=== PATIENT | male | born 1955 | race Caucasian/White ===

== ENCOUNTER 2020-03-16 16:43 | Observation (INO) ==
[2020-03-16 16:50] VITALS: BMI 25.8
--- NOTE | 2020-03-16 18:14 | DR.EXTPAIN ---
HPI Time seen Time Seen by Provider: 03/16/20 18:14 PCP Primary Care Physician: ANDREW HPI Comment HPI Comment: 64 yo m w/ prev hx of chf presents w/ wound left foot x 2 weeks. Stepped on nail that penetrated boots. Complains of progressive pain/ swelling in area of puncture along w/ development of overlying blisters. No f/c. No prev hx of diabetes. No cough, n/v/d, abd pain, CP or sob. Complaint/Symptoms Chief Complaint:: PT. STATES HE STEPPED ON A NAIL 2 WEEKS AGO ON LEFT FOOT. PT. C/O PAIN AND SWELLING TO LEFT FOOT. COVID-19 Coronavirus risk:travel/contact w/high risk person: No Has patient experienced Coronavirus symptoms: No Source History Provided: Patient Mode of arrival Mode of Arrival: Ambulatory Timing Onset of Chief Complaint: 03/02/20 PMH PMH Past Medical History: Yes Past Medical History: CHF, COPD and Coronary Artery Disease Past Medical History Comment: PACEMAKER/DEFIBILLATOR Past Surgical History: Yes Surgical History: Angioplasty/Stents, CABG/Valve Surgery and Cholecystectomy Family History History of Family Medical Conditions: No Social History Does patient currently use any type of tobacco product: Yes Have you used tobacco products in the last 12 months: Yes Type of Tobacco Use: Cigarettes Does any household member use tobacco: No Alcohol Use: Occasionally Do you use any recreational Drugs:: Yes (MARIJUANA) Lives With: Alone Lives Where: Home Travel Risk Coronavirus risk:travel/contact w/high risk person: No Has patient experienced Coronavirus symptoms: No Infectious screening In the last 2 months have you had wt loss of >10#?: NO Have you had fever, night sweats or hemotysis?: No Have you traveled outside the country in the last 6 months?: No Isolation: Standard ROS Review of Systems Constitutional: No Symptoms Reported Eyes: No Symptoms Reported ENTM: No Symptoms Reported Respiratoy: No Symptoms Reported Cardiovascular: No Symptoms Reported Gastrointestinal/Abdominal: No Symptoms Reported Genitourinary: No Symptoms Reported Neurological: No Symptoms Reported Musculoskeletal: Other (wound, left foot pain ) Integumentary: No Symptoms Reported Hematologic/Lymphatic: No Symptoms Reported Endocrine: No Symptoms Reported Psychiatric: No Symptoms Reported All Other Systems: Reviewed and Negative PE Vital Signs Vitals: Temperature 97.2 F Pulse Rate 75 Respiratory Rate 18 Blood Pressure 143/77 O2 Sat by Pulse Oximetry 93 General Limitations: No Limitations General Appearance: Alert and In No Apparent Distress Head Head Exam: Normal Inspection Eyes Eye exam: Normal Appearance ENT ENT Exam: Normal Exam Neck Neck Exam: Normal Inspection Chest Chest Inspection: Normal Inspection Respiratory Respiratory Exam: Normal Lung Sounds Bilat Cardiovascular Cardiovascular Exam: Regular Rate and Normal Rhythm Abdominal Exam Abdominal Exam: Normal Inspection, Normal Bowel Sounds and Soft Extremities Extremities Exam: Normal Inspection Back Back Exam: Normal Inspection Neurological Neurological Exam: Alert, Oriented X3 and CN II-XII Intact Psychiatric Psychiatric Exam: Normal Affect and Normal Mood Skin Skin Exam: Warm, Dry, Intact and Normal Color Other Exam Other Exam: left foot: 1 cm area of multiple vessivles solar surface left foot with surrounding area of errythema, diffuse soft tissue swelling, no crepitus, no proximal streaking, distal nv intact. good cap refill in left foot digits, sensation intact. MDM Differential Diagnosis Differential Diagnosis: Other (cellulitis, abscess, osteomyelitis, compartment syndrom, necrotizing fascitis ) COURSE Treatment Treatment: 64 yo m w/ prev hx of ckd stage 3 and chf/ pacemaker presents with wound left foot after stepping on a nail 2 weeks ago. Evidence of cellulitis on exam. No leukocytosis. Afebrile. Cre 1/6, unclear baseline h/e has hx of ckd s tage 3. Foot film w/ ? radiopaque fb retained however small. Given vanc/ Zosyn. 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 ROR Labs Reviewed Laboratory Results Reviewed?: Yes Result Diagrams: 03/16/20 18:25 03/16/20 18:25 Laboratory: WBC 6.6 X10^3/uL (3.6-10.0) 03/16/20 18:25 RBC 4.82 X10^6/uL (4.7-6.0) 03/16/20 18:25 Hgb 14.4 g/dL (13.5-18.0) 03/16/20 18:25 Hct 42.5 % (42.0-54.0) 03/16/20 18:25 MCV 88.1 fL (80.0-100.0) 03/16/20 18:25 MCH 29.8 pg (27.0-34.0) 03/16/20 18:25 MCHC 33.9 g/dL (33.0-35.0) 03/16/20 18:25 RDW 13.2 % (11.6-16.5) 03/16/20 18:25 Plt Count 212 X10^3/uL (150.0-450.0) 03/16/20 18:25 MPV 7.9 fL (7.4-11.0) 03/16/20 18:25 Neut % (Auto) 62.6 % (42.0-75.0) 03/16/20 18:25 Lymph % (Auto) 20.2 % (21.0-51.0) L 03/16/20 18:25 [place] % (Auto) 10.1 % (0.0-13.0) 03/16/20 18:25 Eos % (Auto) 6.0 % (0.9-2.9) H 03/16/20 18:25 Baso % (Auto) 1.1 % (0.2-1.0) H 03/16/20 18:25 Neut # (Auto) 4.1 x10^3/uL (2.2-4.8) 03/16/20 18:25 Lymph # (Auto) 1.3 X10^3/uL (1.3-2.9) 03/16/20 18:25 [place] # (Auto) 0.7 x10^3/uL (0.3-0.8) 03/16/20 18:25 Eos # (Auto) 0.4 x10^3/uL (0.0-0.2) H 03/16/20 18:25 Baso # (Auto) 0.1 X10^3/uL (0.0-0.1) 03/16/20 18:25 Absolute Nucleated RBC 0.0 /100WBC 03/16/20 18:25 Sodium 142 mmol/L (136-145) 03/16/20 18:25 Corrected Sodium TNP 03/16/20 18:25 Potassium 5.0 mmol/L (3.5-5.1) 03/16/20 18:25 Chloride 106 mmol/L (98-107) 03/16/20 18:25 Carbon Dioxide 30.4 mmol/L (21-32) 03/16/20 18:25 BUN 18 mg/dL (7-18) 03/16/20 18:25 Creatinine 1.62 mg/dL (0.70-1.30) H 03/16/20 18:25 Est GFR (MDRD) Af Amer 56 (>60) L 03/16/20 18:25 Est GFR (MDRD) Non-Af 46 (>60) L 03/16/20 18:25 Glucose 87 mg/dL (65-99) 03/16/20 18:25 Calcium 9.3 mg/dL (8.5-10.1) 03/16/20 18:25 Opioid Opioid Risk Tool Age (Saul box if 16-45): No History of Preadolescent Sexual Abuse: No Total: 0 Total Score Risk Category: Low Risk Copyright: [employer] ENCINAS predicting aberrant behaviors Diagnosis Discharge Problem: Cellulitis and abscess of left lower extremity, CKD stage G3a/A1, GFR 45-59 and albumin creatinine ratio <30 mg/g CHF (congestive heart failure) Qualifiers: Heart failure type: systolic Heart failure chronicity: chronic Qualified Code(s): I50.22 - Chronic systolic (congestive) heart failure Instructions Forms: Excuse From Work Patient Portal Social Distancing
[2020-03-16] MEDS ORDERED: MORPHINE SULFATE INJ 4 MG IVP ONE (18:15)
[2020-03-16] MEDS ORDERED: MORPHINE SULFATE INJ 2 MG INJ ONE (18:25)
[2020-03-16] MEDS ORDERED: ZOFRAN INJ 4 MG VIAL ONE (18:30)
[2020-03-16] MEDS ORDERED: ZOFRAN INJ 4 MG VIAL IVP ONE (18:33)
[2020-03-16 18:34] LABS: BASOPHILS # (AUTO) 0.1 X10^3/uL (0.0-0.1); BASOPHILS % (AUTO) 1.1 % (0.2-1.0); EOSINOPHILS # (AUTO) 0.4 x10^3/uL (0.0-0.2); HEMATOCRIT 42.5 % (42.0-54.0); HEMOGLOBIN 14.4 g/dL (13.5-18.0); LYMPHOCYTES # (AUTO) 1.3 X10^3/uL (1.3-2.9); LYMPHOCYTES % (AUTO) 20.2 % (21.0-51.0); MEAN CORPUSCULAR HEMOGLOBIN 29.8 pg (27.0-34.0); MEAN CORPUSCULAR HGB CONC 33.9 g/dL (33.0-35.0); MEAN CORPUSCULAR VOLUME 88.1 fL (80.0-100.0); MEAN PLATELET VOLUME 7.9 fL (7.4-11.0); MONOCYTES # (AUTO) 0.7 x10^3/uL (0.3-0.8); MONOCYTES % (AUTO) 10.1 % (0.0-13.0); NEUTROPHILS # (AUTO) 4.1 x10^3/uL (2.2-4.8); NEUTROPHILS % (AUTO) 62.6 % (42.0-75.0); PLATELET COUNT 212 X10^3/uL (150.0-450.0); RED BLOOD COUNT 4.82 X10^6/uL (4.7-6.0); RED CELL DISTRIBUTION WIDTH 13.2 % (11.6-16.5); WHITE BLOOD COUNT 6.6 X10^3/uL (3.6-10.0)
[2020-03-16 18:41] LABS: BLOOD UREA NITROGEN 18 mg/dL (7-18); CALCIUM 9.3 mg/dL (8.5-10.1); CARBON DIOXIDE 30.4 mmol/L (21-32); CHLORIDE 106 mmol/L (98-107); CREATININE 1.62 mg/dL (0.70-1.30); SODIUM 142 mmol/L (136-145); eGFR NON BLACK RACES 46 (>60)
[2020-03-16] MEDS ORDERED: ZOSYN VIAL 3.375 GRAMS 3.375 G in NS 100 ML IV + SPIKE MINIBAG* 100 ML IV ONE (18:53)
[2020-03-16] MEDS ORDERED: D5W IV ONE (18:53)
[2020-03-16] MEDS ORDERED: VANCOMYCIN HCL IV ONE (18:53)
[2020-03-16] MEDS ORDERED: ZOSYN VIAL 3.375 GRAMS IV ONE (19:00)
[2020-03-16] MEDS ORDERED: NS 100 ML IV + SPIKE MINIBAG* 100 ML IV ONE (19:00)
[2020-03-16] MEDS ORDERED: NS 250 ML IV 250 ML IV ONE (19:07)
[2020-03-16] MEDS ORDERED: VANCOMYCIN HCL ONE (19:07)
--- NOTE | 2020-03-16 19:25 | RAD ---
HISTORYPT. STATES HE STEPPED ON A NAIL 2 WEEKS AGO ON LEFT FOOT. PT. C/O PAIN AND SWELLING TO LEFT FOOT. CHF, COPD, CAD, ANGIOPLASTY/STENTS, CABG/VALVE, CHOLECYSTECTOMYSTUDYFOOT, LEFTCOMPARISONNoneFINDINGSNo acute cortical disruption or dislocation can be identified. There is some soft tissue swelling on the plantar aspect of the forefoot. There is a tiny 2 mm radiopaque density just beneath the skin surface joints on the lateral view which could be due to retained metallic fragment.. The visualized portions of the talus and calcaneus are unremarkable.IMPRESSIONSoft tissue swelling with a tiny 2 mm radiopaque fragment just at the skin surface as above. No acute bony findings are seen.Electronically signed by: ROXANE DE LOS SANTOS (March 16, 2020 19:23:37)
[2020-03-16] MEDS ORDERED: ADACEL or BOOSTRIX TDaP VACCINE IM ONE ×2 (19:32→19:37)
[2020-03-16] MEDS ORDERED: NORCO 5/325 MG TAB PO PRN (19:40)
[2020-03-16] MEDS ORDERED: ZOFRAN TAB 4 MG PO PRN (19:40)
[2020-03-16] MEDS ORDERED: PHARMACY CONSULT - VANCOMYCIN XX SCH (20:00)
[2020-03-16] MEDS: NICOTINE PATCH TD SCH (21:30)
[2020-03-16] MEDS: PROVENTIL NEB TX 0.083% 2.5MG/ 3ML NEB PRN (22:15)
[2020-03-17] MEDS ORDERED: MAALOX or MYLANTA ONE (03:50)
[2020-03-17] MEDS: MAALOX or MYLANTA PO PRN ×3 (04:06→20:39)
[2020-03-17] MEDS ORDERED: NS 250 ML IV 250 ML IV ONE (04:53)
[2020-03-17] MEDS: ZOSYN VIAL 2.25 GRAMS 2.25 G in NS 100 ML IV + SPIKE MINIBAG* 100 ML IV SCH ×3 (05:18→22:00)
[2020-03-17] MEDS: NICOTINE PATCH TD SCH (08:14)
[2020-03-17] MEDS: PROVENTIL NEB TX 0.083% 2.5MG/ 3ML NEB PRN ×2 (08:26→21:34)
[2020-03-17 10:03] LABS: BASOPHILS % (AUTO) 0.7 % (0.2-1.0); EOSINOPHILS # (AUTO) 0.3 x10^3/uL (0.0-0.2); HEMATOCRIT 38.9 % (42.0-54.0); LYMPHOCYTES # (AUTO) 0.9 X10^3/uL (1.3-2.9); MEAN CORPUSCULAR HEMOGLOBIN 29.6 pg (27.0-34.0); MEAN CORPUSCULAR HGB CONC 33.4 g/dL (33.0-35.0); MEAN CORPUSCULAR VOLUME 88.5 fL (80.0-100.0); MEAN PLATELET VOLUME 8.1 fL (7.4-11.0); MONOCYTES # (AUTO) 0.6 x10^3/uL (0.3-0.8); MONOCYTES % (AUTO) 9.4 % (0.0-13.0); NEUTROPHILS # (AUTO) 4.7 x10^3/uL (2.2-4.8); NEUTROPHILS % (AUTO) 71.9 % (42.0-75.0); PLATELET COUNT 183 X10^3/uL (150.0-450.0); RED BLOOD COUNT 4.39 X10^6/uL (4.7-6.0); RED CELL DISTRIBUTION WIDTH 13.3 % (11.6-16.5); WHITE BLOOD COUNT 6.5 X10^3/uL (3.6-10.0)
[2020-03-17 10:09] LABS: CALCIUM 8.2 mg/dL (8.5-10.1); CARBON DIOXIDE 29.3 mmol/L (21-32); CREATININE 1.65 mg/dL (0.70-1.30)
[2020-03-17] MEDS: COREG TAB 12.5 MG PO SCH ×2 (11:05→20:38)
[2020-03-17] MEDS: ZETIA TAB 10 MG PO SCH (11:05)
[2020-03-17] MEDS: CRESTOR TAB 10 MG PO SCH (11:05)
[2020-03-17] MEDS: VANCOMYCIN IV *PREMIX 1 G/200 ML BAG 1 G/200 ML PIGGYBACK IV SCH ×2 (11:06→20:38)
[2020-03-17] MEDS: PLAVIX PO SCH (11:06)
[2020-03-17] MEDS ORDERED: NORCO 5/325 MG TAB PO PRN (11:36)
--- NOTE | 2020-03-17 11:46 | DR.H&P ---
H&P History & Physical for Day of: H&P Date: 03/17/20 Chief Complaint Chief Complaint: left foot pain Allergies Allergies Allergy/AdvReac Type Severity Reaction Status Date / Time No Known Drug Allergies Allergy Verified 03/16/20 16:50 History of Present Illness History of Present Illness: Mr. Flaherty is a 64y/o male with a PMH of CABG, pacemaker, HTN, CHF presented with left foot injury that happened 2 weeks ago. He stepped on nail and it went through his shoe and punctured the bottom of his foot. He noticed some redness around the area and was taking some Augmentin. The redness and pain continued to worsen and he also noted a small collection of pus. He states he tried to drain it himself but nothing came out. ED work-up Foot XR: soft tissue swelling, 2mm radiopaque metallic fragment noted Labs: Cr 1.62, K:5 He was started on Vanc/Zosyn, received Tdap Plan: will continue antibiotics, repeat labs, start gentle hydration, monitor AM labs. Hold entresto due to AVELINA, Consult Dr. Acevedo Past Medical History Past Medical History: CHF, COPD and Coronary Artery Disease Additional Medical History: CABG Past Surgical History Surgical History: Angioplasty/Stents, CABG/Valve Surgery, Cholecystectomy and Other Family History Family Medical History: Diabetes Mellitus, [place] and Sudden Cardiac Social History Does patient currently use any type of tobacco product: Yes Have you used tobacco products in the last 12 months: Yes Type of Tobacco Use: Cigarettes How many years tobacco product used: 50 Does any household member use tobacco: No Alcohol Use: Occasionally Drug Use: Marijuana Medications Home Medications: No Known Drug Allergies Allergy (Verified 03/16/20 16:50) CONTINUE taking the following medications carvedilol 12.5 mg PO BID 03/16/20 [History] clopidogrel 75 mg PO DAILY 03/16/20 [History] ezetimibe 10 mg PO DAILY 03/16/20 [History] rvgnqosktoq-pnawpihyf-yjlinaed [Trelegy Ellipta] 1 inh INHALATION DAILY 03/16/20 [History] rosuvastatin 40 mg PO DAILY 03/16/20 [History] sacubitril-valsartan [Entresto] 1 tab PO BID 03/16/20 [History] Labs Result Diagrams: 03/17/20 09:35 03/17/20 09:35 Labs: Laboratory WBC 6.5 X10^3/uL (3.6-10.0) 03/17/20 09:35 RBC 4.39 X10^6/uL (4.7-6.0) L 03/17/20 09:35 Hgb 13.0 g/dL (13.5-18.0) L 03/17/20 09:35 Hct 38.9 % (42.0-54.0) L 03/17/20 09:35 MCV 88.5 fL (80.0-100.0) 03/17/20 09:35 MCH 29.6 pg (27.0-34.0) 03/17/20 09:35 MCHC 33.4 g/dL (33.0-35.0) 03/17/20 09:35 RDW 13.3 % (11.6-16.5) 03/17/20 09:35 Plt Count 183 X10^3/uL (150.0-450.0) 03/17/20 09:35 MPV 8.1 fL (7.4-11.0) 03/17/20 09:35 Neut % (Auto) 71.9 % (42.0-75.0) 03/17/20 09:35 Lymph % (Auto) 14.0 % (21.0-51.0) L 03/17/20 09:35 [place] % (Auto) 9.4 % (0.0-13.0) 03/17/20 09:35 Eos % (Auto) 4.0 % (0.9-2.9) H 03/17/20 09:35 Baso % (Auto) 0.7 % (0.2-1.0) 03/17/20 09:35 Neut # (Auto) 4.7 x10^3/uL (2.2-4.8) 03/17/20 09:35 Lymph # (Auto) 0.9 X10^3/uL (1.3-2.9) L 03/17/20 09:35 [place] # (Auto) 0.6 x10^3/uL (0.3-0.8) 03/17/20 09:35 Eos # (Auto) 0.3 x10^3/uL (0.0-0.2) H 03/17/20 09:35 Baso # (Auto) 0.0 X10^3/uL (0.0-0.1) 03/17/20 09:35 Absolute Nucleated RBC 0.0 /100WBC 03/17/20 09:35 Sodium 140 mmol/L (136-145) 03/17/20 09:35 Corrected Sodium 140 mmol/L (136-145) 03/17/20 09:35 Potassium 4.7 mmol/L (3.5-5.1) 03/17/20 09:35 Chloride 107 mmol/L (98-107) 03/17/20 09:35 Carbon Dioxide 29.3 mmol/L (21-32) 03/17/20 09:35 BUN 20 mg/dL (7-18) H 03/17/20 09:35 Creatinine 1.65 mg/dL (0.70-1.30) H 03/17/20 09:35 Est GFR (MDRD) Af Amer 54 (>60) L 03/17/20 09:35 Est GFR (MDRD) Non-Af 45 (>60) L 03/17/20 09:35 Glucose 116 mg/dL (65-99) H 03/17/20 09:35 Calcium 8.2 mg/dL (8.5-10.1) L 03/17/20 09:35 Review of Systems Constitutional: No Symptoms Reported Eyes: No Symptoms Reported ENT: No Symptoms Reported Respiratory: No Symptoms Reported Cardiovascular: No Symptoms Reported Gastrointestinal: Nausea Genitourinary: No Symptoms Reported Musculoskeletal: Foot Pain Skin: Wound Neurological: No Symptoms Reported Physical Exam Vital Signs: Temperature 98.0 F Pulse Rate [Radial] 61 Pulse Rate 64 Respiratory Rate 20 Blood Pressure [Left Arm] 103/58 Blood Pressure 143/77 O2 Sat by Pulse Oximetry 92 Oriented: Normal Eyes: Normal Ear: Normal Nose: Normal Throat: Normal Respiratory: Clear Throughout Cardiovascular: Normal Auscultation: Bowel Sounds: Normal Palpation: Normal Tenderness: Normal Skin: Pustular, Tender, Wound and Other (plantar left foot: small wound noted, pus pocket, mild surrounding erythema ) Musculoskeletal: Left and Foot Psychiatric: Normal Mood Description: Calm Affect: Normal Speech Pattern: Clear and Appropriate Assessment/Plan (1) Cellulitis and abscess of left lower extremity: Status: Acute (2) CHF (congestive heart failure): Qualifiers: Heart failure chronicity: chronic Heart failure type: systolic Qualified Code(s): I50.22 - Chronic systolic (congestive) heart failure Status: Acute (3) CKD stage G3a/A1, GFR 45-59 and albumin creatinine ratio <30 mg/g: Status: Acute (4) Hx of CABG: Status: Acute Review H&P Reviewed: Yes Patient was examined?: Yes
[2020-03-17] MEDS: NS 1000 ML 1,000 ML IV SCH (14:20)
[2020-03-17] MEDS ORDERED: RESTORIL CAP 15 MG PO PRN (19:59)
[2020-03-18] MEDS: NS 1000 ML 1,000 ML IV SCH (01:11)
[2020-03-18] MEDS: PROVENTIL NEB TX 0.083% 2.5MG/ 3ML NEB PRN (05:25)
[2020-03-18 05:34] LABS: BLOOD UREA NITROGEN 17 mg/dL (7-18); CARBON DIOXIDE 30.3 mmol/L (21-32); CHLORIDE 106 mmol/L (98-107); CREATININE 1.52 mg/dL (0.70-1.30); SODIUM 139 mmol/L (136-145); eGFR NON BLACK RACES 49 (>60)
[2020-03-18] MEDS: ZOSYN VIAL 2.25 GRAMS 2.25 G in NS 100 ML IV + SPIKE MINIBAG* 100 ML IV SCH (05:54)
[2020-03-18] MEDS ORDERED: XYLOCAINE 2 % (PLAIN) ONE (08:42)
[2020-03-18] MEDS ORDERED: DILAUDID INJ IVP ONE (08:55)
[2020-03-18] MEDS ORDERED: DILAUDID INJ ONE (08:56)
[2020-03-18] MEDS: PLAVIX PO SCH (09:00)
[2020-03-18] MEDS: NICOTINE PATCH TD SCH (09:02)
[2020-03-18] MEDS: VANCOMYCIN IV *PREMIX 1 G/200 ML BAG 1 G/200 ML PIGGYBACK IV SCH (09:03)
[2020-03-18] MEDS: CRESTOR TAB 10 MG PO SCH (09:33)
[2020-03-18] MEDS: COREG TAB 12.5 MG PO SCH (09:33)
[2020-03-18] MEDS: ZETIA TAB 10 MG PO SCH (09:34)
--- NOTE | 2020-03-18 10:25 | W.DIS.FURT ---
Summary of Discharge Discharge Summary of Date Date of Exam: 03/18/20 Admission Date Date of Admission: 03/16/20 Admission Diagnosis Hospital Course: Mr. Flaherty is a 64y/o male with a PMH of CABG, pacemaker, HTN, CHF presented with left foot injury that happened 2 weeks ago. He stepped on nail and it went through his shoe and punctured the bottom of his foot. He noticed some redness around the area and was taking some Augmentin. The redness and pain continued to worsen and he also noted a small collection of pus. He states he tried to drain it himself but nothing came out. In the ER, Foot XR: soft tissue swelling, 2mm metallic fragment noted Labs: Cr 1.62, K:5. He was started o Vancomycin and Zosyn, Tdap as given. Dr. Acevedo with surgery was consulted for I&D of the abscess. Cultures were sent. Patient was stable for discharge. He was sent with bactrim and augmentin x 10 days. He will follow up with Dr. Acevedo and PCP in one week. Vital Signs: Vital Signs (72 hours) 03/16/20 16:47 03/16/20 18:25 03/16/20 18:55 Temperature 97.2 F L Pulse Rate 75 Pulse Rate [Radial] Respiratory Rate 25 H 18 18 Blood Pressure 143/77 Blood Pressure [Left Arm] O2 Sat by Pulse Oximetry 93 L 03/16/20 20:14 03/16/20 20:25 03/16/20 22:00 Temperature 97.9 F 97.9 F Pulse Rate 77 Pulse Rate [Radial] 63 66 Respiratory Rate 20 20 20 Blood Pressure 143/77 Blood Pressure [Left Arm] 103/59 109/62 O2 Sat by Pulse Oximetry 98 90 L 90 L 03/16/20 22:15 03/17/20 00:00 03/17/20 04:00 Temperature 98.7 F 98.3 F Pulse Rate 66 Pulse Rate [Radial] 67 67 Respiratory Rate 20 20 Blood Pressure Blood Pressure [Left Arm] 95/54 101/58 O2 Sat by Pulse Oximetry 92 L 90 L 93 L 03/17/20 07:42 03/17/20 07:56 03/17/20 08:26 Temperature 98.0 F Pulse Rate 64 Pulse Rate [Radial] 61 Respiratory Rate 18 18 Blood Pressure Blood Pressure [Left Arm] 103/58 O2 Sat by Pulse Oximetry 92 L 92 L 03/17/20 08:42 03/17/20 12:00 03/17/20 16:00 Temperature 97.7 F 98.0 F Pulse Rate Pulse Rate [Radial] 60 61 Respiratory Rate 20 18 18 Blood Pressure Blood Pressure [Left Arm] 84/44 103/58 O2 Sat by Pulse Oximetry 93 L 92 L 03/17/20 19:59 03/17/20 21:34 03/17/20 23:42 Temperature 98.3 F 97.8 F Pulse Rate 58 L Pulse Rate [Radial] 55 L 59 L Respiratory Rate 20 20 Blood Pressure Blood Pressure [Left Arm] 100/58 103/60 O2 Sat by Pulse Oximetry 92 L 93 L 94 L 03/18/20 03:43 03/18/20 05:25 03/18/20 05:54 Temperature 97.8 F Pulse Rate 66 Pulse Rate [Radial] 61 Respiratory Rate 22 22 Blood Pressure Blood Pressure [Left Arm] 102/54 O2 Sat by Pulse Oximetry 95 98 03/18/20 06:54 03/18/20 08:00 03/18/20 09:15 Temperature 98 F Pulse Rate 73 Pulse Rate [Radial] 61 Respiratory Rate 22 20 Blood Pressure Blood Pressure [Left Arm] 107/69 O2 Sat by Pulse Oximetry 98 95 Labs: Laboratory Last Values WBC 6.5 X10^3/uL (3.6-10.0) 03/17/20 09:35 RBC 4.39 X10^6/uL (4.7-6.0) L 03/17/20 09:35 Hgb 13.0 g/dL (13.5-18.0) L 03/17/20 09:35 Hct 38.9 % (42.0-54.0) L 03/17/20 09:35 MCV 88.5 fL (80.0-100.0) 03/17/20 09:35 MCH 29.6 pg (27.0-34.0) 03/17/20 09:35 MCHC 33.4 g/dL (33.0-35.0) 03/17/20 09:35 RDW 13.3 % (11.6-16.5) 03/17/20 09:35 Plt Count 183 X10^3/uL (150.0-450.0) 03/17/20 09:35 MPV 8.1 fL (7.4-11.0) 03/17/20 09:35 Neut % (Auto) 71.9 % (42.0-75.0) 03/17/20 09:35 Lymph % (Auto) 14.0 % (21.0-51.0) L 03/17/20 09:35 [place] % (Auto) 9.4 % (0.0-13.0) 03/17/20 09:35 Eos % (Auto) 4.0 % (0.9-2.9) H 03/17/20 09:35 Baso % (Auto) 0.7 % (0.2-1.0) 03/17/20 09:35 Neut # (Auto) 4.7 x10^3/uL (2.2-4.8) 03/17/20 09:35 Lymph # (Auto) 0.9 X10^3/uL (1.3-2.9) L 03/17/20 09:35 [place] # (Auto) 0.6 x10^3/uL (0.3-0.8) 03/17/20 09:35 Eos # (Auto) 0.3 x10^3/uL (0.0-0.2) H 03/17/20 09:35 Baso # (Auto) 0.0 X10^3/uL (0.0-0.1) 03/17/20 09:35 Absolute Nucleated RBC 0.0 /100WBC 03/17/20 09:35 Sodium 139 mmol/L (136-145) 03/18/20 04:08 Corrected Sodium TNP 03/18/20 04:08 Potassium 4.6 mmol/L (3.5-5.1) 03/18/20 04:08 Chloride 106 mmol/L (98-107) 03/18/20 04:08 Carbon Dioxide 30.3 mmol/L (21-32) 03/18/20 04:08 BUN 17 mg/dL (7-18) 03/18/20 04:08 Creatinine 1.52 mg/dL (0.70-1.30) H 03/18/20 04:08 Est GFR (MDRD) Af Amer 60 (>60) 03/18/20 04:08 Est GFR (MDRD) Non-Af 49 (>60) L 03/18/20 04:08 Glucose 97 mg/dL (65-99) 03/18/20 04:08 Calcium 8.0 mg/dL (8.5-10.1) L 03/18/20 04:08 Reason For Visit: CELLULITIS LEFT FOOT Discharge Date Discharge Date: 03/18/20 Discharge Diagnosis All Active Problems (Updated 03/16/20 @ 19:40 by Jerel Griffin) Hx of CABG (Acute) Cellulitis and abscess of left lower extremity (Acute) CHF (congestive heart failure) (Acute) CKD stage G3a/A1, GFR 45-59 and albumin creatinine ratio <30 mg/g (Acute) Plan of Treatment: Continue with present treatment and follow up plan. Pt is to keep follow up appointment as instructed and take medications as ordered. Discharge Medications Discharge Medications: No Known Drug Allergies Allergy (Verified 03/16/20 16:50) CONTINUE taking the following medications carvedilol 12.5 mg PO BID 03/16/20 [History] clopidogrel 75 mg PO DAILY 03/16/20 [History] ezetimibe 10 mg PO DAILY 03/16/20 [History] uarrvvhguti-ipsppttnr-lhdwecii [Trelegy Ellipta] 1 inh INHALATION DAILY 03/16/20 [History] rosuvastatin 40 mg PO DAILY 03/16/20 [History] sacubitril-valsartan [Entresto] 1 tab PO BID 03/16/20 [History] New Prescriptions amoxicillin-pot clavulanate [Augmentin] 1 tab PO BID 10 Days #20 tab 03/18/20 [Rx] hydrocodone-acetaminophen 1 tab PO TID PRN 3 Days #9 tab MDD 3 tabs 03/18/20 [Rx] sulfamethoxazole-trimethoprim [Bactrim DS] 1 tab PO BID 10 Days #20 tab 03/18/20 [Rx] Discharge Disposition Discharge Disposition: Home Discharge Condition: Stable
[2020-03-18 11:35] VITALS: BP 92/61
[2020-03-18] MEDS ORDERED: PHARMACY COMMENT IV NR (20:30)
== END 2020-03-18 12:20 | disposition home or self-care (01) ==
LOC: ER 16:46 → MED/SURG 16:46
PROVIDERS: ADMIT Family Medicine; ATTEND Family Medicine
DX: I50.22 Chronic systolic (congestive) heart failure; Z95.1 Presence of aortocoronary bypass graft; Y92.9 Unspecified place or not applicable; S91.342A Puncture wound with foreign body, left foot, initial encounter; N18.3 Chronic kidney disease, stage 3 (moderate); I11.0 Hypertensive heart disease with heart failure; I25.10 Atherosclerotic heart disease of native coronary artery without angina pectoris; L03.116 Cellulitis of left lower limb; W45.0XXA Nail entering through skin, initial encounter; L02.416 Cutaneous abscess of left lower limb; J44.9 Chronic obstructive pulmonary disease, unspecified; Z23 Encounter for immunization
CPT/HCPCS: 36415; 73630; 80048; 85025; 87070; 87075; 87205; 90471; 90715; 94640; 94760; 96360; 96361; 96365; 96367; 96372; 96374; 96375; 99284; A4216; A4222; G0378; J1170; J2270; J2405; J2543; J3370; J7030; J7050; J7613

== ENCOUNTER 2023-12-15 14:56 | Observation (INO) ==
--- NOTE | 2023-12-15 15:04 | DR.SOBA ---
HPI Time Seen Time Seen by Provider: 12/15/23 15:09 Complaints Chief Complaint Doctors Comments: 68 y/o male presents for evaluation. Has a history of COPD, CHF. Has had worsening shortness of breath over the past week. Has been having increasing swelling of his legs up including his scrotum. Marlin peguero has been compliant with his medications. He was told to double up on his diuretic medication this week, has not been helping. Denies fever, chills, chest pain, bowel or bladder issues. Having shortness of breath, worse with exertion and lying flat. Not having much cough. Has gained several pounds this past week. Reviewed Nurses Notes Reviewed: Yes Source History Provided: Patient Mode of Arrival Mode of Arrival: Wheelchair PMH PMH Past Medical History: CHF, COPD, Coronary Artery Disease and Dyslipidemia Past Surgical History: Yes Surgical History: Angioplasty/Stents, CABG/Valve Surgery and Cholecystectomy Family History Family Medical History: Diabetes Mellitus, [place], Heart Failure, Sudden Cardiac and Hypertension Social History Alcohol Use: None Do you use any recreational Drugs:: No ROS Review of Systems Constitutional: Weakness Eyes: No Symptoms Reported ENTM: No Symptoms Reported Respiratoy: No Symptoms Reported Cardiovascular: Edema and Palpitations Gastrointestinal/Abdominal: No Symptoms Reported Genitourinary: No Symptoms Reported Neurological: No Symptoms Reported Musculoskeletal: No Symptoms Reported Integumentary: No Symptoms Reported Psychiatric: No Symptoms Reported All Other Systems: Reviewed and Negative PE Vital Signs Vitals: Vital Signs Temperature 98.1 F Pulse Rate 97 Pulse Rate 99 Pulse Rate 96 Pulse Rate 93 Pulse Rate 92 Pulse Rate 93 Pulse Rate 96 Pulse Rate 98 Pulse Rate 95 Pulse Rate 99 Pulse Rate 100 Pulse Rate 102 Pulse Rate 105 Respiratory Rate 49 Respiratory Rate 36 Respiratory Rate 27 Respiratory Rate 26 Respiratory Rate 21 Respiratory Rate 24 Respiratory Rate 26 Respiratory Rate 27 Respiratory Rate 29 Respiratory Rate 28 Respiratory Rate 33 Respiratory Rate 36 Respiratory Rate 24 Blood Pressure 112/75 Blood Pressure 111/71 Blood Pressure 117/64 Blood Pressure 117/64 Blood Pressure 104/65 Blood Pressure 100/58 Blood Pressure 110/60 O2 Sat by Pulse Oximetry 98 O2 Sat by Pulse Oximetry 98 O2 Sat by Pulse Oximetry 99 O2 Sat by Pulse Oximetry 99 O2 Sat by Pulse Oximetry 98 O2 Sat by Pulse Oximetry 98 O2 Sat by Pulse Oximetry 99 O2 Sat by Pulse Oximetry 98 O2 Sat by Pulse Oximetry 98 O2 Sat by Pulse Oximetry 97 O2 Sat by Pulse Oximetry 97 O2 Sat by Pulse Oximetry 97 O2 Sat by Pulse Oximetry 90 General General Appearance: Alert and In No Apparent Distress Eyes Eye exam: PERRL and EOMI ENT ENT Exam: Mucous Membranes Moist Neck Neck Exam: Normal Inspection Respiratory Respiratory Exam: Other (sitting upright, has minimal rales, R base, + tachypnea. ) Cardiovascular Cardiovascular Exam: Regular Rate and Normal Heart Sounds Extremities Extremities Exam: Edema (4+ bilateral lower exts.) Neurologic Neurological Exam: Alert, Oriented X3 and CN II-XII Intact; negative Motor Sensory Deficit Skin Skin Exam: Warm and Dry COURSE Treatment Treatment: 89 y/o male with exertional dyspnea, worsening edema. Maintaining oxygen on 3 L. Workup initiated. Patient given IV Lasix, 40 mg.. EKG shows ventricular paced rhythm. CXR -clinically with increased pulmonary vascular congestion. BNP elevated 2,620. Has renal insufficiency with creatinine of 2.43. Patient without much output from the initial dose of IV Lasix. Given a second dose of IV Lasix, [address] Rasheed, on-call for the hospital. He will admit the patient. ROR Labs Reviewed Laboratory Results Reviewed?: Yes 12/15/23 15:20 12/15/23 15:20 Laboratory: WBC 7.9 X10^3/uL (3.6-10.0) 12/15/23 15:20 RBC 4.13 X10^6/uL (4.7-6.0) L 12/15/23 15:20 Hgb 9.6 g/dL (13.5-18.0) L 12/15/23 15:20 Hct 31.0 % (42.0-54.0) L 12/15/23 15:20 MCV 75.0 fL (80.0-100.0) L 12/15/23 15:20 MCH 23.2 pg (27.0-34.0) L 12/15/23 15:20 MCHC 30.9 g/dL (33.0-35.0) L 12/15/23 15:20 RDW 18.3 % (11.6-16.5) H 12/15/23 15:20 Plt Count 351 X10^3/uL (150.0-450.0) 12/15/23 15:20 MPV 7.5 fL (7.4-11.0) 12/15/23 15:20 Neut % (Auto) 81.0 % (42.0-75.0) H 12/15/23 15:20 Lymph % (Auto) 5.9 % (21.0-51.0) L 12/15/23 15:20 [place] % (Auto) 9.9 % (0.0-13.0) 12/15/23 15:20 Eos % (Auto) 1.4 % (0.9-2.9) 12/15/23 15:20 Baso % (Auto) 1.8 % (0.2-1.0) H 12/15/23 15:20 Neut # (Auto) 6.4 x10^3/uL (2.2-4.8) H 12/15/23 15:20 Lymph # (Auto) 0.5 X10^3/uL (1.3-2.9) L 12/15/23 15:20 [place] # (Auto) 0.8 x10^3/uL (0.3-0.8) 12/15/23 15:20 Eos # (Auto) 0.1 x10^3/uL (0.0-0.2) 12/15/23 15:20 Baso # (Auto) 0.1 X10^3/uL (0.0-0.1) 12/15/23 15:20 Absolute Nucleated RBC 0.1 /100WBC 12/15/23 15:20 Sample Site Rbr 12/15/23 15:15 ABG pH 7.480 (7.35-7.45) H 12/15/23 15:15 ABG pCO2 50.0 mmHg (35.0-45.0) H 12/15/23 15:15 ABG pO2 102.0 mmHg (80.0-100.0) H 12/15/23 15:15 ABG HCO3 37.2 mmol/L (22-26) H* 12/15/23 15:15 ABG O2 Saturation 98.0 % (90-100) 12/15/23 15:15 ABG Base Excess 11.9 mmol/L (-2.0-2.0) H 12/15/23 15:15 Gabino Test Na 12/15/23 15:15 A-a Gradient 64.0 mmHg 02/21/24 15:15 FiO2 32.0 12/15/23 15:15 Blood Gas Comments Pt jett well. kg 12/15/23 15:15 Sodium 144 mmol/L (136-145) 12/15/23 15:20 Corrected Sodium 144 mmol/L (136-145) 12/15/23 15:20 Potassium 3.8 mmol/L (3.5-5.1) 12/15/23 15:20 Chloride 102 mmol/L (98-107) 12/15/23 15:20 Carbon Dioxide 34.5 mmol/L (21-32) H 12/15/23 15:20 BUN 19 mg/dL (7-18) H 12/15/23 15:20 Creatinine 2.43 mg/dL (0.70-1.30) H 12/15/23 15:20 Est GFR (MDRD) Af Amer 34 (>60) L 12/15/23 15:20 Est GFR (MDRD) Non-Af 28 (>60) L 12/15/23 15:20 Glucose 116 mg/dL (65-99) H 12/15/23 15:20 Calcium 8.8 mg/dL (8.5-10.1) 12/15/23 15:20 Corrected Calcium 9.6 mg/dL (8.5-10.1) 12/15/23 15:20 Total Bilirubin 0.70 mg/dL (0.2-1.0) 12/15/23 15:20 AST 12 Units/L (15-37) L 12/15/23 15:20 ALT 9 Units/L (12-78) L 12/15/23 15:20 Alkaline Phosphatase 77 Units/L (46-116) 12/15/23 15:20 Troponin I High Sens 58.9 ng/L (4.0-60.0) 12/15/23 15:20 B-Natriuretic Peptide 2620 pg/mL (0-79) H 12/15/23 15:20 Total Protein 6.1 g/dL (6.4-8.2) L 12/15/23 15:20 Albumin 3.0 g/dL (3.4-5.0) L 12/15/23 15:20 Globulin 3.1 g/dL (2.5-4.5) 12/15/23 15:20 Albumin/Globulin Ratio 1.0 Ratio (1.1-2.1) L 12/15/23 15:20 XRAY XRAY Interpreted by: Both X-ray Results: EXAM: CHEST, 1 VIEW HISTORY: c/o 1 week of progressively worsening shortness of breath associated with swelling in bilateral lower extremities, scrotum and abdomen. Pt denies any pain, fever, or cough.; COMPARISON: Prior study or studies were utilized for comparison during interpretation with the most relevant dated 07/22/2023 TECHNIQUE: CHEST, 1 VIEW FINDINGS: Chest: Lines and tubes: Right-sided pacemaker generator with lead or leads in satisfactory position. Mediastinum: Median sternotomy wires are present. The cardiac shadow is enlarged. Pulmonary vessels: There is pulmonary vascular congestion. Lung edmond: Patchy opacities are seen Pleura: There is blunting of the left costophrenic angle. No pneumothorax. Bones and soft tissues: No acute osseous or soft tissue abnormality. IMPRESSION: 1. Heart failure suggested THIS IS AN ELECTRONICALLY VERIFIED FINAL REPORT 12/15/2023 3:49 PM - Electronically signed by Domingo Stevens MD Opioid Opioid Risk Tool Age (Saul box if 16-45): No History of Preadolescent Sexual Abuse: No Total: 0 Total Score Risk Category: Low Risk Copyright: [employer] ENCINAS predicting aberrant behaviors Discharge Plan Diagnosis Discharge Problem: Acute exacerbation of CHF (congestive heart failure), COPD (chronic obstructive pulmonary disease) Discharge Plan Patient Disposition: ADMITTED INPATIENT Condition: Stable Prescriptions: No Action clopidogrel 75 mg tablet 75 mg PO DAILY spironolactone 25 mg Tablet 25 mg PO QDAY temazepam 15 mg Capsule 15 mg PO QHS PRN dapagliflozin propanediol [Farxiga] 5 mg Tablet 5 mg PO QAM digoxin 125 mcg (0.125 mg) Tablet 125 mcg PO QDAY Qty: 30 1RF Rx Instructions: take one tablet daily levalbuterol HCl 0.63 mg/3 mL solution for nebulization 0.63 mg inhalation Q6H PRN allopurinol 100 mg tablet 100 mg PO QDAY bumetanide 1 mg tablet 1 mg PO BID midodrine 10 mg tablet 10 mg PO BID Entresto 24-26 mg tablet 1 tab PO QDAY Health Concerns: Post Hospitalization: new medications and changes needed to prevent readmission or further decline. Pt educated and given instructions on all concerns. Plan of Treatment: Continue with present treatment and follow up plan. Pt is to keep follow up appointment as instructed and take medications as ordered. Orders to Discharge Patient Discharge Orders: Transfer (Routine); Ordered 12/15/23 Ordered By: Andrez Bustamante Follow ups/Referrals Follow ups/Referrals: TEE MORALES [Primary Care Provider] - 3 days
--- NOTE | 2023-12-15 15:11 | EKG ---
Test Reason : dyspnea Blood Pressure : */* mmHG Vent. Rate : 102 BPM Atrial Rate : 79 BPM P-R Int : * ms QRS Dur : 162 ms QT Int : 420 ms P-R-T Axes : * -76 91 degrees QTc Int : 547 ms Ventricular-paced rhythm Abnormal ECG When compared with ECG of 20-JUL-2023 17:04, Vent. rate has increased BY 11 BPM Confirmed by Moe Kilgore ([id number]) on 12/15/2023 6:38:09 PM Referred By: Confirmed By: Moe Kilgore
[2023-12-15 15:19] LABS: ABG BASE EXCESS 11.9 mmol/L (-2.0-2.0)
[2023-12-15 15:20] LABS: ABG HCO3 37.2 mmol/L (22-26)
[2023-12-15 15:31] LABS: BASOPHILS # (AUTO) 0.1 X10^3/uL (0.0-0.1); BASOPHILS % (AUTO) 1.8 % (0.2-1.0); EOSINOPHILS # (AUTO) 0.1 x10^3/uL (0.0-0.2); EOSINOPHILS % (AUTO) 1.4 % (0.9-2.9); HEMOGLOBIN 9.6 g/dL (13.5-18.0); LYMPHOCYTES # (AUTO) 0.5 X10^3/uL (1.3-2.9); LYMPHOCYTES % (AUTO) 5.9 % (21.0-51.0); MEAN CORPUSCULAR HEMOGLOBIN 23.2 pg (27.0-34.0); MEAN CORPUSCULAR HGB CONC 30.9 g/dL (33.0-35.0); MEAN PLATELET VOLUME 7.5 fL (7.4-11.0); MONOCYTES # (AUTO) 0.8 x10^3/uL (0.3-0.8); MONOCYTES % (AUTO) 9.9 % (0.0-13.0); NEUTROPHILS # (AUTO) 6.4 x10^3/uL (2.2-4.8); PLATELET COUNT 351 X10^3/uL (150.0-450.0); RED BLOOD COUNT 4.13 X10^6/uL (4.7-6.0); RED CELL DISTRIBUTION WIDTH 18.3 % (11.6-16.5); WHITE BLOOD COUNT 7.9 X10^3/uL (3.6-10.0)
[2023-12-15] MEDS ORDERED: LASIX IVP ONE ×2 (15:33→17:39)
[2023-12-15] MEDS: LASIX IVP ONE ×2 (15:39→17:44)
[2023-12-15 15:43] LABS: CALCIUM 8.8 mg/dL (8.5-10.1); CARBON DIOXIDE 34.5 mmol/L (21-32); COR CA(FOR HYPOALB) 9.6 mg/dL (8.5-10.1); CREATININE 2.43 mg/dL (0.70-1.30); POTASSIUM 3.8 mmol/L (3.5-5.1); TOTAL PROTEIN 6.1 g/dL (6.4-8.2)
--- NOTE | 2023-12-15 15:52 | RAD ---
EXAM:CHEST, 1 VIEWHISTORY:c/o 1 week of progressively worsening shortness of breath associated with swelling in bilateral lower extremities, scrotum and abdomen. Pt denies any pain, fever, or cough.;COMPARISON:Prior study or studies were utilized for comparison during interpretation with the most relevant dated 07/22/2023TECHNIQUE:CHEST, 1 VIEWFINDINGS:Chest:Lines and tubes: Right-sided pacemaker generator with lead or leads in satisfactory position.Mediastinum: Median sternotomy wires are present. The cardiac shadow is enlarged.Pulmonary vessels: There is pulmonary vascular congestion.Lung edmond: Patchy opacities are seenPleura: There is blunting of the left costophrenic angle. No pneumothorax.Bones and soft tissues: No acute osseous or soft tissue abnormality.IMPRESSION:1. Heart failure suggestedTHIS IS AN ELECTRONICALLY VERIFIED FINAL REPORT12/15/2023 3:49 PM - Electronically signed by Domingo Stevens MD
[2023-12-15] MEDS: XOPENEX 1.25 MG/3 ML NEBULE NEB PRN (20:00)
[2023-12-15] MEDS: LEVALBUTEROL IN PRN (20:00)
[2023-12-15] MEDS ORDERED: CONSULT PHARMACY - POTASSIUM & MAGNESIUM XX SCH (20:04)
[2023-12-15 20:17] VITALS: BMI 29.6
[2023-12-15] MEDS: BUMEX TAB 1 MG PO SCH (20:40)
[2023-12-15] MEDS: RESTORIL CAP 15 MG PO PRN (20:41)
[2023-12-15] MEDS: PROAMATINE PO SCH (20:41)
[2023-12-15] MEDS ORDERED: MIDODRINE 10 MG PO SCH (21:00)
[2023-12-15] MEDS: K-DUR TAB 20 MEQ PO SCH (21:17)
[2023-12-16] MEDS: XOPENEX 1.25 MG/3 ML NEBULE NEB PRN (00:05)
[2023-12-16 06:29] LABS: BASOPHILS # (AUTO) 0.1 X10^3/uL (0.0-0.1); BASOPHILS % (AUTO) 1.2 % (0.2-1.0); EOSINOPHILS # (AUTO) 0.2 x10^3/uL (0.0-0.2); HEMATOCRIT 32.6 % (42.0-54.0); HEMOGLOBIN 10.1 g/dL (13.5-18.0); LYMPHOCYTES # (AUTO) 0.6 X10^3/uL (1.3-2.9); LYMPHOCYTES % (AUTO) 7.7 % (21.0-51.0); MEAN CORPUSCULAR HEMOGLOBIN 23.2 pg (27.0-34.0); MEAN CORPUSCULAR HGB CONC 30.9 g/dL (33.0-35.0); MEAN PLATELET VOLUME 7.7 fL (7.4-11.0); MONOCYTES # (AUTO) 1.2 x10^3/uL (0.3-0.8); MONOCYTES % (AUTO) 15.1 % (0.0-13.0); NEUTROPHILS # (AUTO) 5.7 x10^3/uL (2.2-4.8); PLATELET COUNT 357 X10^3/uL (150.0-450.0); RED BLOOD COUNT 4.35 X10^6/uL (4.7-6.0); RED CELL DISTRIBUTION WIDTH 18.1 % (11.6-16.5); WHITE BLOOD COUNT 7.8 X10^3/uL (3.6-10.0)
[2023-12-16 06:38] LABS: ALANINE AMINOTRANSFERASE 11 Units/L (12-78); ALBUMIN 3.1 g/dL (3.4-5.0); ALKALINE PHOSPHATASE 76 Units/L (46-116); ASPARTATE AMINO TRANSFERASE 14 Units/L (15-37); BLOOD UREA NITROGEN 20 mg/dL (7-18); CALCIUM 8.8 mg/dL (8.5-10.1); CARBON DIOXIDE 36.3 mmol/L (21-32); CHLORIDE 103 mmol/L (98-107); COR CA(FOR HYPOALB) 9.5 mg/dL (8.5-10.1); CREATININE 2.44 mg/dL (0.70-1.30); GLUCOSE 100 mg/dL (65-99); SODIUM 147 mmol/L (136-145); TOTAL PROTEIN 6.2 g/dL (6.4-8.2); eGFR NON BLACK RACES 28 (>60)
[2023-12-16] MEDS: FARXIGA PO SCH (09:13)
[2023-12-16] MEDS: ALDACTONE TAB 25 MG PO SCH (09:13)
[2023-12-16] MEDS: ENTRESTO 24/26 MG TABLET PO SCH (09:13)
[2023-12-16] MEDS: LANOXIN or DIGITEK PO SCH (09:14)
[2023-12-16] MEDS: ZYLOPRIM PO SCH (09:15)
[2023-12-16] MEDS: PLAVIX PO SCH (09:15)
[2023-12-16] MEDS: LASIX IVP SCH ×2 (09:19→17:09)
[2023-12-16] MEDS: COREG TAB 3.125 MG PO SCH (10:08)
[2023-12-16] MEDS: LASIX IVP NR (10:58)
[2023-12-16] MEDS: LOVENOX INJ 30 MG SYR SC SCH (10:58)
[2023-12-17 06:15] LABS: MEAN CORPUSCULAR VOLUME 74.8 fL (80.0-100.0)
[2023-12-17 06:24] LABS: BASOPHILS # (AUTO) 0.1 X10^3/uL (0.0-0.1); BASOPHILS % (AUTO) 1.4 % (0.2-1.0); EOSINOPHILS # (AUTO) 0.4 x10^3/uL (0.0-0.2); EOSINOPHILS % (AUTO) 4.5 % (0.9-2.9); HEMATOCRIT 31.5 % (42.0-54.0); HEMOGLOBIN 9.8 g/dL (13.5-18.0); LYMPHOCYTES # (AUTO) 0.7 X10^3/uL (1.3-2.9); LYMPHOCYTES % (AUTO) 8.3 % (21.0-51.0); MEAN CORPUSCULAR HEMOGLOBIN 23.3 pg (27.0-34.0); MEAN CORPUSCULAR HGB CONC 31.1 g/dL (33.0-35.0); MEAN PLATELET VOLUME 7.8 fL (7.4-11.0); MONOCYTES # (AUTO) 1.2 x10^3/uL (0.3-0.8); MONOCYTES % (AUTO) 15.3 % (0.0-13.0); NEUTROPHILS # (AUTO) 5.6 x10^3/uL (2.2-4.8); NEUTROPHILS % (AUTO) 70.5 % (42.0-75.0); PLATELET COUNT 303 X10^3/uL (150.0-450.0); RED CELL DISTRIBUTION WIDTH 18.2 % (11.6-16.5); WHITE BLOOD COUNT 7.9 X10^3/uL (3.6-10.0)
[2023-12-17 06:25] LABS: ALANINE AMINOTRANSFERASE 8 Units/L (12-78); ALKALINE PHOSPHATASE 78 Units/L (46-116); ASPARTATE AMINO TRANSFERASE 15 Units/L (15-37); BLOOD UREA NITROGEN 21 mg/dL (7-18); CALCIUM 9.1 mg/dL (8.5-10.1); CARBON DIOXIDE 37.7 mmol/L (21-32); CHLORIDE 102 mmol/L (98-107); COR CA(FOR HYPOALB) 9.9 mg/dL (8.5-10.1); CREATININE 2.44 mg/dL (0.70-1.30); GLUCOSE 89 mg/dL (65-99); POTASSIUM 3.9 mmol/L (3.5-5.1); SODIUM 147 mmol/L (136-145); eGFR NON BLACK RACES 28 (>60)
[2023-12-17 06:53] LABS: ANISOCYTOSIS SLIGHT; HYPOCHROMASIA 1+; MICROCYTOSIS SLIGHT; PLATELET MORPHOLOGY COMMENT NORMAL (NORMAL)
[2023-12-17] MEDS: COREG TAB 6.25 MG PO SCH (09:34)
[2023-12-17] MEDS: FARXIGA PO SCH (09:35)
[2023-12-17] MEDS: PROAMATINE PO SCH (09:36)
[2023-12-17] MEDS: INFeD or DEXFERRUM 25 MG in NS 100 ML IV 100 ML IV ONE (10:45)
[2023-12-17] MEDS: MILK OF MAGNESIA PO PRN (11:01)
[2023-12-17] MEDS: INFeD or DEXFERRUM 975 MG in NS 500 ML IV 500 ML IV ONE (12:16)
[2023-12-17] MEDS ORDERED: ZOFRAN INJ 4 MG VIAL ONE (16:19)
[2023-12-17] MEDS: ZOFRAN INJ 4 MG VIAL IVP PRN (16:33)
[2023-12-18 05:25] LABS: BASOPHILS # (AUTO) 0.1 X10^3/uL (0.0-0.1); BASOPHILS % (AUTO) 0.8 % (0.2-1.0); EOSINOPHILS # (AUTO) 0.3 x10^3/uL (0.0-0.2); EOSINOPHILS % (AUTO) 3.8 % (0.9-2.9); HEMATOCRIT 32.8 % (42.0-54.0); HEMOGLOBIN 10.1 g/dL (13.5-18.0); LYMPHOCYTES # (AUTO) 0.4 X10^3/uL (1.3-2.9); MEAN CORPUSCULAR HEMOGLOBIN 23.1 pg (27.0-34.0); MEAN CORPUSCULAR HGB CONC 30.7 g/dL (33.0-35.0); MEAN CORPUSCULAR VOLUME 75.2 fL (80.0-100.0); MONOCYTES # (AUTO) 1.1 x10^3/uL (0.3-0.8); MONOCYTES % (AUTO) 14.7 % (0.0-13.0); NEUTROPHILS # (AUTO) 5.6 x10^3/uL (2.2-4.8); NEUTROPHILS % (AUTO) 74.7 % (42.0-75.0); PLATELET COUNT 338 X10^3/uL (150.0-450.0); RED BLOOD COUNT 4.36 X10^6/uL (4.7-6.0); RED CELL DISTRIBUTION WIDTH 18.6 % (11.6-16.5); WHITE BLOOD COUNT 7.5 X10^3/uL (3.6-10.0)
[2023-12-18 05:33] LABS: ALKALINE PHOSPHATASE 88 Units/L (46-116); BLOOD UREA NITROGEN 26 mg/dL (7-18); CALCIUM 8.9 mg/dL (8.5-10.1); CARBON DIOXIDE 35.9 mmol/L (21-32); CHLORIDE 102 mmol/L (98-107); COR CA(FOR HYPOALB) 9.7 mg/dL (8.5-10.1); COR NA(FOR HYPERGLY) 146 mmol/L (136-145); CREATININE 2.47 mg/dL (0.70-1.30); GLUCOSE 130 mg/dL (65-99); POTASSIUM 3.9 mmol/L (3.5-5.1); SODIUM 145 mmol/L (136-145); TOTAL PROTEIN 6.1 g/dL (6.4-8.2); eGFR NON BLACK RACES 28 (>60)
[2023-12-18 05:49] LABS: ALANINE AMINOTRANSFERASE < 6 Units/L (12-78); ASPARTATE AMINO TRANSFERASE 8 Units/L (15-37)
[2023-12-18] MEDS: LASIX IVP ONE ×2 (10:30→20:09)
[2023-12-18 20:05] VITALS: RESP 20
[2023-12-19 04:44] LABS: BASOPHILS # (AUTO) 0.1 X10^3/uL (0.0-0.1); EOSINOPHILS # (AUTO) 0.4 x10^3/uL (0.0-0.2); HEMOGLOBIN 9.5 g/dL (13.5-18.0); MEAN PLATELET VOLUME 7.9 fL (7.4-11.0); WHITE BLOOD COUNT 8.8 X10^3/uL (3.6-10.0)
[2023-12-19 04:48] LABS: BASOPHILS % (AUTO) 1.1 % (0.2-1.0); EOSINOPHILS % (AUTO) 4.3 % (0.9-2.9); HEMATOCRIT 31.1 % (42.0-54.0); LYMPHOCYTES # (AUTO) 0.5 X10^3/uL (1.3-2.9); LYMPHOCYTES % (AUTO) 5.2 % (21.0-51.0); MEAN CORPUSCULAR HGB CONC 30.7 g/dL (33.0-35.0); MONOCYTES # (AUTO) 1.3 x10^3/uL (0.3-0.8); MONOCYTES % (AUTO) 14.3 % (0.0-13.0); NEUTROPHILS # (AUTO) 6.7 x10^3/uL (2.2-4.8); NEUTROPHILS % (AUTO) 75.1 % (42.0-75.0); PLATELET COUNT 312 X10^3/uL (150.0-450.0); RED BLOOD COUNT 4.14 X10^6/uL (4.7-6.0); RED CELL DISTRIBUTION WIDTH 18.7 % (11.6-16.5)
[2023-12-19 04:55] LABS: ALANINE AMINOTRANSFERASE 11 Units/L (12-78); ALBUMIN 2.7 g/dL (3.4-5.0); ALKALINE PHOSPHATASE 79 Units/L (46-116); ASPARTATE AMINO TRANSFERASE 13 Units/L (15-37); BLOOD UREA NITROGEN 25 mg/dL (7-18); CALCIUM 8.6 mg/dL (8.5-10.1); CARBON DIOXIDE 35.8 mmol/L (21-32); CHLORIDE 103 mmol/L (98-107); COR CA(FOR HYPOALB) 9.6 mg/dL (8.5-10.1); GLUCOSE 108 mg/dL (65-99); POTASSIUM 3.5 mmol/L (3.5-5.1); SODIUM 146 mmol/L (136-145); TOTAL PROTEIN 5.4 g/dL (6.4-8.2); eGFR NON BLACK RACES 28 (>60)
[2023-12-19] MEDS ORDERED: CONSULT PHARMACY - POTASSIUM & MAGNESIUM XX SCH (06:00)
[2023-12-19 08:13] VITALS: PULSE 54; TEMP 97.4; O2SAT 97
[2023-12-19] MEDS: BUMEX TAB 1 MG PO SCH (09:05)
[2023-12-19] MEDS: K-DUR TAB 20 MEQ PO SCH (09:06)
[2023-12-19 10:15] VITALS: BP 85/53
== END 2023-12-19 10:54 | disposition home or self-care (01) ==
LOC: ER 14:56 → MED/SURG 14:56
PROVIDERS: ADMIT Obstetrics & Gynecology Obstetrics; ATTEND Obstetrics & Gynecology Obstetrics
DX: J44.9 Chronic obstructive pulmonary disease, unspecified; E78.5 Hyperlipidemia, unspecified; R60.0 Localized edema; R06.02 Shortness of breath; D50.8 Other iron deficiency anemias; I50.21 Acute systolic (congestive) heart failure; I25.10 Atherosclerotic heart disease of native coronary artery without angina pectoris; Z59.86 Financial insecurity